=== PATIENT | female | born 1965 | race Caucasian/White ===

== ENCOUNTER 2023-08-09 12:14 | Emergency (ER) | payer OTHER ==
[2023-08-09] MEDS: Ibuprofen 600 MG Tab PO ONE (13:00)
== END 2023-08-09 13:36 | disposition home or self-care (01) ==
LOC: MW.ED 12:14
DX: S22.31XA Fracture of one rib, right side, initial encounter for closed fracture (principal); Z79.899 Other long term (current) drug therapy; V81.5XXA Occupant of railway train or railway vehicle injured by fall in railway train or railway vehicle, initial encounter
CPT/HCPCS: 71046; 99283; A9270